=== PATIENT | female | born 1955 | race Two or more races ===

== ENCOUNTER 2016-06-30 15:43 | Outpatient (CLI) | payer BC | END 2016-06-30 23:59 | disposition home or self-care (01) | LOC: MRI 15:43 | PROVIDERS: ATTEND Family Medicine | DX: M65.812 Other synovitis and tenosynovitis, left shoulder (principal); M19.012 Primary osteoarthritis, left shoulder | CPT/HCPCS: 73221-TC ==

== ENCOUNTER 2017-12-28 15:25 | Outpatient (CLI) | payer BC ==
[2017-12-28 17:28] LABS: RED BLOOD CELL COUNT(AUTO) 4.11 MIL/uL (4.0-5.2); WHITE BLOOD COUNT (AUTO) 6.5 K/uL (4.3-11.0)
[2017-12-28 17:29] LABS: BASOPHILS # (AUTO) 0.1 /CMM (0.0-0.2); BASOPHILS % (AUTO) 0.8 % (0.0-2.0); EOSINOPHILS % (AUTO) 2.8 % (0.0-6.0); HEMATOCRIT 37 % (33-45); HEMOGLOBIN 12.3 g/dL (11.5-14.8); LYMPHOCYTES # (AUTO) 1.9 /CMM (0.8-4.8); LYMPHOCYTES % (AUTO) 29.8 % (20.0-44.0); MEAN CORPUSCULAR HEMOGLOBIN 30 PG (26.0-33.0); MEAN CORPUSCULAR HGB CONC 34 g/dl (31.0-36.0); MEAN CORPUSCULAR VOLUME 89 fL (82-100); MONOCYTES # (AUTO) 0.6 /CMM (0.1-1.30); MONOCYTES % (AUTO) 8.4 % (2.0-12.0); NEUTROPHILS # (AUTO) 3.8 /CMM (1.8-8.9); NEUTROPHILS % (AUTO) 58.3 % (43.0-81.0); PLATELET COUNT (AUTO) 258 /CMM (150-450); RDW COEFFICIENT OF VARIATION 13.1 (11.5-15.0)
[2017-12-28 17:47] LABS: ALBUMIN 4.1 g/dL (3.4-5.0); BILIRUBIN,TOTAL 0.2 mg/dL (0.2-1.0); CALCIUM, SERUM 9.3 mg/dL (8.5-10.1); CREATININE 0.9 mg/dL (0.6-1.3); POTASSIUM 3.9 mmol/L (3.5-5.1); TOTAL PROTEIN, SERUM 7.4 g/dL (6.4-8.2)
== END 2017-12-28 23:59 | disposition home or self-care (01) ==
LOC: LAB 15:25
PROVIDERS: ATTEND Family Medicine
DX: R10.9 Unspecified abdominal pain (principal)
CPT/HCPCS: 36415; 80053-TC; 82150-TC; 83690-TC; 85025-TC; 87086-TC

== ENCOUNTER 2020-03-04 13:14 | Outpatient (CLI) | payer BC | END 2020-03-04 23:59 | disposition home or self-care (01) | LOC: MRI 13:14 | PROVIDERS: ATTEND Family Medicine | DX: M67.432 Ganglion, left wrist (principal); R22.32 Localized swelling, mass and lump, left upper limb | CPT/HCPCS: 73110; 73218-TC; 73221 ==

== ENCOUNTER 2020-03-21 08:59 | Outpatient (CLI) | payer BC ==
[2020-03-21 10:44] LABS: CALCIUM, SERUM 9.1 mg/dL (8.5-10.1); POTASSIUM 4.1 mmol/L (3.5-5.1)
[2020-03-21] MEDS ORDERED: GADOTERATE MEGLUMINE 5 MMOL/10 ML VIAL IV ONE (15:19)
== END 2020-03-21 23:59 | disposition home or self-care (01) ==
LOC: CT 08:59
PROVIDERS: ATTEND Family Medicine
DX: R91.8 Other nonspecific abnormal finding of lung field (principal); K76.9 Liver disease, unspecified; D17.79 Benign lipomatous neoplasm of other sites; Z90.710 Acquired absence of both cervix and uterus
CPT/HCPCS: 36415; 71250; 72197; 74183; 80048; A9575

== ENCOUNTER 2020-04-05 13:06 | Outpatient (CLI) | payer BC ==
[2020-04-05 14:27] LABS: BASOPHILS # (AUTO) 0.1 /CMM (0.0-0.2); BASOPHILS % (AUTO) 0.7 % (0.0-2.0); EOSINOPHILS % (AUTO) 1.6 % (0.0-6.0); HEMATOCRIT 37 % (33-45); HEMOGLOBIN 11.8 g/dL (11.5-14.8); LYMPHOCYTES # (AUTO) 1.5 /CMM (0.8-4.8); LYMPHOCYTES % (AUTO) 18.2 % (20.0-44.0); MEAN CORPUSCULAR HGB CONC 32 g/dl (31.0-36.0); MEAN CORPUSCULAR VOLUME 89 fL (82-100); MONOCYTES # (AUTO) 0.8 /CMM (0.1-1.30); MONOCYTES % (AUTO) 10.1 % (2.0-12.0); NEUTROPHILS # (AUTO) 5.5 /CMM (1.8-8.9); NEUTROPHILS % (AUTO) 69.4 % (43.0-81.0); PLATELET COUNT (AUTO) 255 /CMM (150-450)
[2020-04-05 15:16] LABS: BILIRUBIN,TOTAL 0.3 mg/dL (0.2-1.0); CALCIUM, SERUM 9.1 mg/dL (8.5-10.1); CREATININE 0.8 mg/dL (0.6-1.3); POTASSIUM 4.5 mmol/L (3.5-5.1); TOTAL PROTEIN, SERUM 7.8 g/dL (6.4-8.2)
[2020-04-06 08:19] LABS: AFP, TUMOR MARKER 3.4 ng/mL (0.0-8.3)
== END 2020-04-05 23:59 | disposition home or self-care (01) ==
LOC: LAB 13:06
PROVIDERS: ATTEND Internal Medicine Hematology & Oncology
DX: I10 Essential (primary) hypertension (principal); E78.00 Pure hypercholesterolemia, unspecified; K73.9 Chronic hepatitis, unspecified
CPT/HCPCS: 36415; 80053-TC; 82105; 85025-TC; 85610-TC; 85730-TC; 86317; 86803; 87340

== ENCOUNTER 2020-04-09 14:36 | Inpatient (IN) | payer BC ==
[2020-04-09] VITALS (8 sets, daily range): BP systolic 100–122; BP diastolic 48–73
--- NOTE | 2020-04-09 14:40 | NUR ---
RECEIVED PT FROM OR NURSE. PT TO STAY ON R SIDE FOR 2 HOURS. MONITORING VS FOR Q15MIN X2 THEN Q30 X4. PT ON 2L NC SPO 95%. VS ARE TEMP 97.7, HR 80, RESP RATE 20, BP 120/60. REPORTS 5/10 PAIN IN R SIDE AREA OF BIOPSY ON INHALATION. INFORMED MD. AWAITING ORDERS.
[2020-04-09] MEDS ORDERED: HYDROCODONE/APAP 5/325MG TABLET PO PRN (16:00)
[2020-04-09] MEDS ORDERED: ACETAMINOPHEN 325 MG TABLET PO PRN (16:00)
--- NOTE | 2020-04-09 18:13 | NUR ---
PT DC TO HOME. WALKED WITH PT TO PRIVATE VEHICLE WITH HER SPOUSE DRIVING. PT VITALS REMAINED STABLE THROUGHOUT ADMISSION. CHECKED VITALS q15 X2 AND q30 x4. PAIN MANAGED FROM 5 TO 0 WITH TYLENOL ORDERED. IV REMOVED. NO SIGNS OF BLEEDING. ALL BELONGINGS BROUGHT. PT DENIES DISTRESS PAIN OR SOB. NO QUESTIONS. PT WALKS WITH NO ABNORMAL GAIT OR BALANCE. PT STABLE AND STRONG.
== END 2020-04-09 18:12 | disposition home or self-care (01) | DRG 443 ==
LOC: MEDSG1 14:36
DX: K76.9 Liver disease, unspecified (principal)
CPT/HCPCS: G0378

== ENCOUNTER → 2020-04-09 | Day surgery (SDC) | payer BC ==
[~2020-04-09] MED LIST: FENTANYL PF 250MCG/5ML AMPUL IV ONE; IV NS 0.9% 250 ML IV ONE; MIDAZOLAM HCL 5MG/ML VIAL 25 MG/5 ML VIAL IV ONE; NALOXONE PREFILLED SYRINGE 2 MG/2 ML SYRINGE IV ONE
== END | disposition home or self-care (01) ==
LOC: CT 12:38 → DS 14:20
DX: R16.0 Hepatomegaly, not elsewhere classified (principal); C78.7 Secondary malignant neoplasm of liver and intrahepatic bile duct; C19 Malignant neoplasm of rectosigmoid junction
CPT/HCPCS: 47000; 77012; 99152; J2250; J3010; J7050; J2310

== ENCOUNTER 2020-04-16 11:20 | Outpatient (CLI) | payer BC ==
[2020-04-16 13:07] LABS: BASOPHILS # (AUTO) 0.1 /CMM (0.0-0.2); BASOPHILS % (AUTO) 0.9 % (0.0-2.0); EOSINOPHILS % (AUTO) 1.7 % (0.0-6.0); HEMATOCRIT 37 % (33-45); LYMPHOCYTES # (AUTO) 1.3 /CMM (0.8-4.8); LYMPHOCYTES % (AUTO) 23.6 % (20.0-44.0); MEAN CORPUSCULAR HGB CONC 33 g/dl (31.0-36.0); MEAN CORPUSCULAR VOLUME 88 fL (82-100); MONOCYTES # (AUTO) 0.4 /CMM (0.1-1.30); MONOCYTES % (AUTO) 7.5 % (2.0-12.0); NEUTROPHILS # (AUTO) 3.7 /CMM (1.8-8.9); NEUTROPHILS % (AUTO) 66.3 % (43.0-81.0); PLATELET COUNT (AUTO) 270 /CMM (150-450); RED BLOOD CELL COUNT(AUTO) 4.18 MIL/uL (4.0-5.2); WHITE BLOOD COUNT (AUTO) 5.6 K/uL (4.3-11.0)
[2020-04-16 13:19] LABS: CALCIUM, SERUM 8.8 mg/dL (8.5-10.1); CREATININE 0.7 mg/dL (0.6-1.3); POTASSIUM 3.8 mmol/L (3.5-5.1)
== END 2020-04-16 23:59 | disposition home or self-care (01) ==
LOC: WOU 11:20
PROVIDERS: ATTEND Surgery
DX: C22.9 Malignant neoplasm of liver, not specified as primary or secondary (principal); Z20.828 Contact with and (suspected) exposure to other viral communicable diseases; E11.9 Type 2 diabetes mellitus without complications; Z79.84 Long term (current) use of oral hypoglycemic drugs; E78.5 Hyperlipidemia, unspecified; I10 Essential (primary) hypertension; Z79.82 Long term (current) use of aspirin
CPT/HCPCS: 36415; 80048; 85025; 85730; 93005; 99215; C9803; U0003; G0463

== ENCOUNTER 2020-04-19 05:59 | Day surgery (SDC) | payer BC ==
[2020-04-19] MEDS ORDERED: ANESTHESIA TRAY IN PYXIS 1 EA TRAY MC ONE (07:00)
[2020-04-19] MEDS ORDERED: IOHEXOL 240MG/ML 0 ML IV ONE (07:00)
[2020-04-19] MEDS ORDERED: LIDOCAINE HCL/MPF 1% 30 ML VIAL IJ ONE ×2 (07:01→07:04)
[2020-04-19] MEDS ORDERED: FENTANYL PF 100MCG/2ML AMPUL ONE (07:24)
[2020-04-19] MEDS ORDERED: SEVOFLURANE 250 ML BOTTLE IH ONE (07:42)
== END 2020-04-19 10:05 | disposition home or self-care (01) ==
LOC: DS 05:59
PROVIDERS: ATTEND Surgery
DX: C22.8 Malignant neoplasm of liver, primary, unspecified as to type (principal)
CPT/HCPCS: 36561; 71045; 76937; 77001; 82962 ×2; C1788; J1644; J3010; J3490 ×2; J0690; J2370; J2704; Q9966

== ENCOUNTER 2020-04-30 13:32 | Outpatient (CLI) | payer BC ==
[2020-04-30 14:43] LABS: BASOPHILS % (AUTO) 0.5 % (0.0-2.0); EOSINOPHILS % (AUTO) 2.3 % (0.0-6.0); HEMATOCRIT 37 % (33-45); HEMOGLOBIN 12.1 g/dL (11.5-14.8); LYMPHOCYTES # (AUTO) 1.4 /CMM (0.8-4.8); LYMPHOCYTES % (AUTO) 21.1 % (20.0-44.0); MEAN CORPUSCULAR HGB CONC 33 g/dl (31.0-36.0); MEAN CORPUSCULAR VOLUME 88 fL (82-100); MONOCYTES # (AUTO) 0.5 /CMM (0.1-1.30); MONOCYTES % (AUTO) 7.3 % (2.0-12.0); NEUTROPHILS # (AUTO) 4.6 /CMM (1.8-8.9); NEUTROPHILS % (AUTO) 68.8 % (43.0-81.0); PLATELET COUNT (AUTO) 162 /CMM (150-450); RED BLOOD CELL COUNT(AUTO) 4.24 MIL/uL (4.0-5.2); WHITE BLOOD COUNT (AUTO) 6.7 K/uL (4.3-11.0)
[2020-04-30 14:56] LABS: ALBUMIN 3.7 g/dL (3.4-5.0); CALCIUM, SERUM 8.9 mg/dL (8.5-10.1); POTASSIUM 4.2 mmol/L (3.5-5.1)
[2020-04-30 15:28] LABS: BILIRUBIN,TOTAL 0.2 mg/dL (0.2-1.0); TOTAL PROTEIN, SERUM 7.1 g/dL (6.4-8.2)
== END 2020-04-30 23:59 | disposition home or self-care (01) ==
LOC: LAB 13:32
PROVIDERS: ATTEND Internal Medicine Hematology & Oncology
DX: C78.7 Secondary malignant neoplasm of liver and intrahepatic bile duct (principal); K73.9 Chronic hepatitis, unspecified; R97.8 Other abnormal tumor markers
CPT/HCPCS: 36415; 80053-TC; 85025-TC

== ENCOUNTER 2020-05-16 10:09 | Outpatient (CLI) | payer BC ==
[2020-05-16 10:54] LABS: BASOPHILS % (AUTO) 0.4 % (0.0-2.0); EOSINOPHILS % (AUTO) 0.2 % (0.0-6.0); HEMATOCRIT 34 % (33-45); HEMOGLOBIN 11.2 g/dL (11.5-14.8); LYMPHOCYTES # (AUTO) 1.6 /CMM (0.8-4.8); LYMPHOCYTES % (AUTO) 25.7 % (20.0-44.0); MEAN CORPUSCULAR HGB CONC 33 g/dl (31.0-36.0); MEAN CORPUSCULAR VOLUME 88 fL (82-100); MONOCYTES % (AUTO) 16.7 % (2.0-12.0); NEUTROPHILS # (AUTO) 3.5 /CMM (1.8-8.9); PLATELET COUNT (AUTO) 104 /CMM (150-450); RED BLOOD CELL COUNT(AUTO) 3.86 MIL/uL (4.0-5.2); WHITE BLOOD COUNT (AUTO) 6.1 K/uL (4.3-11.0)
[2020-05-16 11:29] LABS: ALBUMIN 3.6 g/dL (3.4-5.0); BILIRUBIN,TOTAL 0.2 mg/dL (0.2-1.0); CALCIUM, SERUM 8.9 mg/dL (8.5-10.1); CREATININE 0.8 mg/dL (0.6-1.3); POTASSIUM 3.8 mmol/L (3.5-5.1); TOTAL PROTEIN, SERUM 7.1 g/dL (6.4-8.2)
[2020-05-16 13:07] LABS: BAND % (MANUAL) 2 % (0.0-5.0); LYMPHOCYTES % (MANUAL) 26 % (16-48); MONOCYTES % (MANUAL) 14 % (0-11.0); NEUTROPHILS % (MANUAL) 58 (42-76)
== END 2020-05-16 23:59 | disposition home or self-care (01) ==
LOC: LAB 10:09
PROVIDERS: ATTEND Internal Medicine Hematology & Oncology
DX: C78.7 Secondary malignant neoplasm of liver and intrahepatic bile duct (principal); R97.8 Other abnormal tumor markers
CPT/HCPCS: 36415; 80053-TC; 82378; 85025-TC; 86301

== ENCOUNTER 2020-05-30 11:20 | Outpatient (CLI) | payer BC ==
[2020-05-30 12:08] LABS: BASOPHILS % (AUTO) 0.8 % (0.0-2.0); EOSINOPHILS % (AUTO) 0.4 % (0.0-6.0); HEMATOCRIT 32 % (33-45); HEMOGLOBIN 10.4 g/dL (11.5-14.8); LYMPHOCYTES # (AUTO) 1.1 /CMM (0.8-4.8); LYMPHOCYTES % (AUTO) 26.5 % (20.0-44.0); MEAN CORPUSCULAR HGB CONC 33 g/dl (31.0-36.0); MEAN CORPUSCULAR VOLUME 90 fL (82-100); MONOCYTES # (AUTO) 0.4 /CMM (0.1-1.30); MONOCYTES % (AUTO) 11.1 % (2.0-12.0); NEUTROPHILS # (AUTO) 2.4 /CMM (1.8-8.9); NEUTROPHILS % (AUTO) 61.2 % (43.0-81.0); RED BLOOD CELL COUNT(AUTO) 3.51 MIL/uL (4.0-5.2)
[2020-05-30 12:23] LABS: PLATELET COUNT (AUTO) 17 /CMM (150-450)
[2020-05-30 13:11] LABS: ALBUMIN 3.6 g/dL (3.4-5.0); BILIRUBIN,TOTAL 0.3 mg/dL (0.2-1.0); CALCIUM, SERUM 9.4 mg/dL (8.5-10.1); CREATININE 0.9 mg/dL (0.6-1.3); POTASSIUM 4.4 mmol/L (3.5-5.1); TOTAL PROTEIN, SERUM 7.1 g/dL (6.4-8.2)
[2020-05-30 13:51] LABS: BAND % (MANUAL) 1 % (0.0-5.0); LYMPHOCYTES % (MANUAL) 24 % (16-48); MONOCYTES % (MANUAL) 8 % (0-11.0); NEUTROPHILS % (MANUAL) 67 (42-76)
== END 2020-05-30 23:59 | disposition home or self-care (01) ==
LOC: LAB 11:20
PROVIDERS: ATTEND Internal Medicine Hematology & Oncology
DX: C78.7 Secondary malignant neoplasm of liver and intrahepatic bile duct (principal); K73.9 Chronic hepatitis, unspecified; R97.8 Other abnormal tumor markers
CPT/HCPCS: 36415; 80053-TC; 82378; 85025-TC; 86301

== ENCOUNTER 2020-06-27 10:50 | Outpatient (CLI) | payer BC ==
[2020-06-27 12:30] LABS: BASOPHILS # (AUTO) 0.1 /CMM (0.0-0.2); EOSINOPHILS % (AUTO) 0.4 % (0.0-6.0); HEMATOCRIT 37 % (33-45); HEMOGLOBIN 11.8 g/dL (11.5-14.8); LYMPHOCYTES # (AUTO) 1.5 /CMM (0.8-4.8); LYMPHOCYTES % (AUTO) 18.8 % (20.0-44.0); MEAN CORPUSCULAR HGB CONC 32 g/dl (31.0-36.0); MEAN CORPUSCULAR VOLUME 93 fL (82-100); MONOCYTES # (AUTO) 0.9 /CMM (0.1-1.30); MONOCYTES % (AUTO) 11.1 % (2.0-12.0); NEUTROPHILS # (AUTO) 5.4 /CMM (1.8-8.9); NEUTROPHILS % (AUTO) 68.7 % (43.0-81.0); PLATELET COUNT (AUTO) 116 /CMM (150-450); RED BLOOD CELL COUNT(AUTO) 3.91 MIL/uL (4.0-5.2); WHITE BLOOD COUNT (AUTO) 7.9 K/uL (4.3-11.0)
[2020-06-27 13:26] LABS: ALBUMIN 3.5 g/dL (3.4-5.0); BILIRUBIN,TOTAL 0.2 mg/dL (0.2-1.0); CALCIUM, SERUM 9.2 mg/dL (8.5-10.1); POTASSIUM 4.3 mmol/L (3.5-5.1); TOTAL PROTEIN, SERUM 7.1 g/dL (6.4-8.2)
== END 2020-06-27 23:59 | disposition home or self-care (01) ==
LOC: WOU 10:50
PROVIDERS: ATTEND Surgery
DX: T82.598A Other mechanical complication of other cardiac and vascular devices and implants, initial encounter (principal); C22.9 Malignant neoplasm of liver, not specified as primary or secondary; Z79.82 Long term (current) use of aspirin
CPT/HCPCS: 36415; 80053-TC; 85025-TC; 85610-TC; 85730-TC; G0463

== ENCOUNTER 2020-06-27 12:26 | Outpatient (CLI) | payer BC | END 2020-06-27 23:59 | disposition home or self-care (01) | LOC: LAB 12:26 | PROVIDERS: ATTEND Surgery | DX: Z01.812 Encounter for preprocedural laboratory examination (principal); Z20.822 Contact with and (suspected) exposure to COVID-19; C22.9 Malignant neoplasm of liver, not specified as primary or secondary | CPT/HCPCS: 87426; C9803 ==

== ENCOUNTER 2020-06-28 06:39 | Day surgery (SDC) | payer BC ==
[2020-06-28] MEDS ORDERED: IOHEXOL 240MG/ML 0 ML IV ONE (07:01)
[2020-06-28] MEDS ORDERED: LIDOCAINE HCL/MPF 1% 30 ML VIAL IJ ONE (07:02)
[2020-06-28] MEDS ORDERED: ANESTHESIA TRAY IN PYXIS 1 EA TRAY MC ONE (07:02)
[2020-06-28] MEDS ORDERED: FENTANYL PF 100MCG/2ML AMPUL ONE (07:14)
[2020-06-28] MEDS ORDERED: MIDAZOLAM HCL 2 MG/2ML VIAL ONE (07:14)
[2020-06-28] MEDS ORDERED: SUCCINYLCHOLINE CHLORIDE 20 MG/ML VIAL ONE (07:16)
[2020-06-28] MEDS ORDERED: HEPARIN SODIUM, PORCINE 1,000 UNIT/ML VIAL ONE (07:41)
== END 2020-06-28 10:25 | disposition home or self-care (01) ==
LOC: DS 06:39
PROVIDERS: ATTEND Surgery
DX: T82.594A Other mechanical complication of infusion catheter, initial encounter (principal); Y82.8 Other medical devices associated with adverse incidents; I10 Essential (primary) hypertension; E11.9 Type 2 diabetes mellitus without complications; E78.00 Pure hypercholesterolemia, unspecified; Z79.84 Long term (current) use of oral hypoglycemic drugs; Z79.899 Other long term (current) drug therapy
CPT/HCPCS: 36415; 36561; 36590; 71045 ×2; 77001; 82962 ×2; 83036; A4217; C1788; J0330; J0690; J1644 ×2; J2250; J2405; J2704; J2765; J3010; J3490; Q9966

== ENCOUNTER 2020-07-11 11:05 | Outpatient (CLI) | payer BC | END 2020-07-11 23:59 | disposition home or self-care (01) | LOC: WOU 11:05 | PROVIDERS: ATTEND Surgery | DX: Z48.817 Encounter for surgical aftercare following surgery on the skin and subcutaneous tissue (principal); C22.9 Malignant neoplasm of liver, not specified as primary or secondary; Z95.828 Presence of other vascular implants and grafts | CPT/HCPCS: G0463 ==

== ENCOUNTER 2020-07-18 11:00 | Outpatient (CLI) | payer BC | END 2020-07-18 23:59 | disposition home or self-care (01) | LOC: WOU 11:00 | PROVIDERS: ATTEND Surgery | DX: T82.59 Other mechanical complication of other cardiac and vascular devices and implants (principal); C22.9 Malignant neoplasm of liver, not specified as primary or secondary; Z79.84 Long term (current) use of oral hypoglycemic drugs; E11.9 Type 2 diabetes mellitus without complications; I10 Essential (primary) hypertension | CPT/HCPCS: G0463 ==

== ENCOUNTER 2020-07-19 13:58 | Outpatient (CLI) | payer BC | END 2020-07-19 23:59 | disposition home or self-care (01) | LOC: WOUNDDS 13:58 | PROVIDERS: ATTEND Internal Medicine Hematology & Oncology | DX: Z45.2 Encounter for adjustment and management of vascular access device (principal); C78.7 Secondary malignant neoplasm of liver and intrahepatic bile duct | CPT/HCPCS: 36569; C1751 ==

== ENCOUNTER 2022-09-23 10:56 | Outpatient (CLI) | payer MEDICARE, BC ==
[2022-09-23 11:43] LABS: BASOPHILS % (AUTO) 0.4 % (0.0-2.0); EOSINOPHILS % (AUTO) 0.2 % (0.0-6.0); HEMATOCRIT 25 % (33-45); HEMOGLOBIN 7.8 g/dL (11.5-14.8); LYMPHOCYTES # (AUTO) 0.8 K/uL (0.8-4.8); LYMPHOCYTES % (AUTO) 11.2 % (20.0-44.0); MEAN CORPUSCULAR HGB CONC 32 g/dl (31.0-36.0); MEAN CORPUSCULAR VOLUME 102 fL (82-100); MONOCYTES # (AUTO) 1.2 K/uL (0.1-1.30); MONOCYTES % (AUTO) 15.7 % (2.0-12.0); NEUTROPHILS # (AUTO) 5.4 K/uL (1.8-8.9); NEUTROPHILS % (AUTO) 72.5 % (43.0-81.0); PLATELET COUNT (AUTO) 130 K/uL (150-450); RED BLOOD CELL COUNT(AUTO) 2.41 MIL/uL (4.0-5.2); WHITE BLOOD COUNT (AUTO) 7.4 K/uL (4.3-11.0)
== END 2022-09-23 23:59 | disposition home or self-care (01) ==
LOC: LAB 10:56
PROVIDERS: ATTEND Internal Medicine Hematology & Oncology
DX: C25.9 Malignant neoplasm of pancreas, unspecified (principal); D64.9 Anemia, unspecified
CPT/HCPCS: 36415; 85025-TC

== ENCOUNTER 2022-10-14 10:57 | Outpatient (CLI) | payer MEDICARE, BC ==
[2022-10-14 11:54] LABS: BASOPHILS % (AUTO) 0.4 % (0.0-2.0); EOSINOPHILS % (AUTO) 0.4 % (0.0-6.0); HEMATOCRIT 25 % (33-45); LYMPHOCYTES # (AUTO) 1.2 K/uL (0.8-4.8); LYMPHOCYTES % (AUTO) 13.7 % (20.0-44.0); MEAN CORPUSCULAR HGB CONC 32 g/dl (31.0-36.0); MEAN CORPUSCULAR VOLUME 101 fL (82-100); MONOCYTES # (AUTO) 1.2 K/uL (0.1-1.30); MONOCYTES % (AUTO) 14.2 % (2.0-12.0); NEUTROPHILS # (AUTO) 6.2 K/uL (1.8-8.9); NEUTROPHILS % (AUTO) 71.3 % (43.0-81.0); PLATELET COUNT (AUTO) 113 K/uL (150-450); WHITE BLOOD COUNT (AUTO) 8.7 K/uL (4.3-11.0)
== END 2022-10-14 23:59 | disposition home or self-care (01) ==
LOC: LAB 10:57
PROVIDERS: ATTEND Internal Medicine Hematology & Oncology
DX: D64.9 Anemia, unspecified (principal)
CPT/HCPCS: 36415; 85025-TC